=== PATIENT | male | born 1955 | race African-American/Black ===

== ENCOUNTER 2018-08-27 14:55 | Emergency (ER) | payer MEDICARE, MEDICAID ==
[~2018-08-27] VITALS: Ht 172.7 cm; Wt 68.0 kg
[2018-08-27] MEDS ORDERED: Sodium Chloride 500ML 500 ML IV ONE (15:41)
[2018-08-27] MEDS ORDERED: Fish oil ORAL (16:03)
[2018-08-27] MEDS ORDERED: ABILIFY2 MG ORAL (16:03)
[2018-08-27] MEDS ORDERED: FOLIC ACID1 MG ORAL (16:03)
[2018-08-27] MEDS ORDERED: LOSARTAN POTASS50 MG ORAL (16:03)
[2018-08-27] MEDS ORDERED: LIPITOR20 MG ORAL (16:03)
[2018-08-27] MEDS ORDERED: PROTONIX40 MG ORAL (16:03)
[2018-08-27] MEDS ORDERED: KEYTRUDA100 MG/4 M IV (16:08)
[2018-08-27 16:09] VITALS: BP 134/66
[2018-08-27 16:23] LABS: INR 1.1 (0.9-1.1)
[2018-08-27 16:27] LABS: ANION GAP 10 mmol/L (5-15); BLOOD UREA NITROGEN 16 mg/dL (7-18); CALCIUM 9.2 MG/DL (8.5-10.1); CARBON DIOXIDE 26 MMOL/L (21-32); CHLORIDE 93 MMOL/L (98-107); CREATININE 0.8 MG/DL (0.55-1.30); POTASSIUM 5.1 MMOL/L (3.5-5.1); SODIUM 129 MMOL/L (136-145)
[2018-08-27 16:32] LABS: ALANINE AMINOTRANSFERASE 25 U/L (12-78); ALBUMIN 3.3 G/DL (3.4-5.0); ALBUMIN/GLOBULIN RATIO 0.7 (1.0-2.7); ALKALINE PHOSPHATASE 116 U/L (46-116); ASPARTATE AMINO TRANSFERASE 33 U/L (15-37)
[2018-08-27 16:37] LABS: HEMATOCRIT 26.1 % (42.0-52.0); MEAN CORPUSCULAR VOLUME 90 FL (80-99); PLATELET COUNT 124 K/UL (150-450); RED CELL DISTRIBUTION WIDTH 17.9 % (11.6-14.8); WHITE BLOOD COUNT 6.1 K/UL (4.8-10.8)
[2018-08-27] MEDS ORDERED: OMEGA 3 1,0001 EACH PO (17:30)
[2018-08-27] MEDS ORDERED: HYDROMORPHONE HC4 M1 PO (17:30)
[2018-08-27] MEDS ORDERED: LOSARTAN POTAS100 MG ORAL (17:30)
[2018-08-27] MEDS ORDERED: ABILIFY5 MG ORAL (17:30)
[2018-08-27 17:33] VITALS: BP 119/69
[2018-08-27] MEDS ORDERED: VITAMIN D250000 UNI1 ORAL (17:37)
--- NOTE | 2018-08-27 17:56 | Emergency Room Report ---
History of Present Illness General Chief Complaint: Abnormal Labs Source: Patient Present Illness HPI 8-year-old male presents ED for evaluation. Was sent here for evaluation of low hemoglobin. Labs drawn today at PMD office and stated that his hemoglobin was 6.6. History of lung CA with metastasis. Is currently receiving chemotherapy. States he feels a little weak. Denies any blood in stool. Also complaining of left leg weakness 3 days. States he is unable to lift the leg properly. Notes some tingling sensation in the leg with some pain. Eyes any incontinence. Denies any slurred speech or facial droop. Denies any arm weakness. No other aggravating relieving factors. Denies any other associated symptoms Allergies: Coded Allergies: No Known Allergies (Unverified , 08/27/18) Patient History Past Medical History: HTN, GERD, other - lung CA Past Surgical History: none Pertinent Family History: none Social History: Denies: smoking, alcohol use, drug use Immunizations: UTD Reviewed Nursing Documentation: PMH: Agreed Nursing Documentation-PMH Hx Hypertension: Yes Hx Cancer: Yes - Lung CA, with bone mets. Hx Gastrointestinal Problems: Yes - GERD Review of Systems All Other Systems: negative except mentioned in HPI Physical Exam Vital Signs Date Time Temp Pulse Resp B/P (MAP) Pulse Ox O2 Delivery O2 Flow Rate FiO2 08/27/18 15:15 98.8 71 18 132/73 99 Room Air Sp02 EP Interpretation: reviewed, normal General Appearance: no apparent distress, alert, GCS 15, non-toxic Head: normocephalic, atraumatic Eyes: bilateral eye normal inspection, bilateral eye PERRL ENT: hearing grossly normal, normal pharynx, no angioedema, normal voice Neck: full range of motion, supple/symm/no masses Respiratory: chest non-tender, lungs clear, normal breath sounds, speaking full sentences Cardiovascular #1: regular rate, rhythm, no edema Cardiovascular #2: 2+ carotid (R), 2+ carotid (L), 2+ radial (R), 2+ radial (L) , 2+ dorsalis pedis (R), 2+ dorsalis pedis (L) Gastrointestinal: normal bowel sounds, non tender, soft, non-distended, no guarding, no rebound Rectal: deferred Genitourinary: normal inspection, no CVA tenderness Musculoskeletal: gait/station normal, normal range of motion Neurologic: alert, oriented x3, responsive, pin worker III-XII nml as tested, speech normal, other - unable to lift LLE Psychiatric: judgement/insight normal, memory normal, mood/affect normal, no suicidal/homicidal ideation Reflexes: 3+ bicep (R), 3+ bicep (L), 3+ tricep (R), 3+ tricep (L), 3+ knee (R) , 3+ knee (L) Skin: normal color, no rash, warm/dry, well hydrated Lymphatic: no adenopathy Medical Decision Making Diagnostic Impression: Primary Impression: Anemia Qualified Codes: D64.9 - Anemia, unspecified Additional Impressions: Left leg weakness Closed fracture of lumbar vertebral body Osseous metastasis Sciatica Qualified Codes: M54.32 - Sciatica, left side ER Course Hospital Course 62 yo M presents to ED for evaluation of anemia. h/o lung cancer on chemotherapy. c/o lower leg weakness Differential diagnosis includes- anemia, dehydration, sciatica Clinical course Patient placed on stretcher. After initial history and physical I ordered labs , CT head and CT L spine Labs - no leukocytosis, hb/hct stable, electrolytes ok CT head - no acute process CT L spine - pathologic fx L1 likely osseus metastasis, spinal stenosis with disk bulging noted Discussed findings with patient. No bowel or bladder incontinence. I offered option for admission but patient declined. States he wants to follow-up as outpatient. I discussed findings with PMD Dr. Vasquez I feel this is a highly complex case requiring extensive working including EKG/ Rhythm strip, Xray/CT/US, Blood/urine lab work, repeat exams while in ED, and administration of strong opiates/narcotics for pain control, admission to hospital or close patient follow up. Diagnosis - anemia, L leg weakness, closed fracture of lumbar vertebral body, osseus metastasis, sciatica Stable and discharged to home. Followup with PMD. Return to ED if symptoms recur or worsen Labs Test 08/27/18 15:40 White Blood Count 6.1 K/UL (4.8-10.8) Red Blood Count 2.90 M/UL (4.70-6.10) Hemoglobin 9.0 G/DL (14.2-18.0) Hematocrit 26.1 % (42.0-52.0) Mean Corpuscular Volume 90 FL (80-99) Mean Corpuscular Hemoglobin 31.0 PG (27.0-31.0) Mean Corpuscular Hemoglobin Concent 34.4 G/DL (32.0-36.0) Red Cell Distribution Width 17.9 % (11.6-14.8) Platelet Count 124 K/UL (150-450) Mean Platelet Volume 6.2 FL (6.5-10.1) Neutrophils (%) (Auto) % (45.0-75.0) Lymphocytes (%) (Auto) % (20.0-45.0) Monocytes (%) (Auto) % (1.0-10.0) Eosinophils (%) (Auto) % (0.0-3.0) Basophils (%) (Auto) % (0.0-2.0) Differential Total Cells Counted 100 Neutrophils % (Manual) 95 % (45-75) Lymphocytes % (Manual) 3 % (20-45) Monocytes % (Manual) 2 % (1-10) Eosinophils % (Manual) 0 % (0-3) Basophils % (Manual) 0 % (0-2) Band Neutrophils 0 % (0-8) Platelet Estimate Decreased Platelet Morphology Normal Hypochromasia 1+ Anisocytosis 1+ Prothrombin Time 11.6 SEC (9.30-11.50) Prothromb Time International Ratio 1.1 (0.9-1.1) Activated Partial Thromboplast Time 28 SEC (23-33) Sodium Level 129 MMOL/L (136-145) Potassium Level 5.1 MMOL/L (3.5-5.1) Chloride Level 93 MMOL/L (98-107) Carbon Dioxide Level 26 MMOL/L (21-32) Anion Gap 10 mmol/L (5-15) Blood Urea Nitrogen 16 mg/dL (7-18) Creatinine 0.8 MG/DL (0.55-1.30) Estimat Glomerular Filtration Rate > 60 mL/min (>60) Glucose Level 93 MG/DL (74-106) Calcium Level 9.2 MG/DL (8.5-10.1) Total Bilirubin 1.0 MG/DL (0.2-1.0) Aspartate Amino Transf (AST/SGOT) 33 U/L (15-37) Alanine Aminotransferase (ALT/SGPT) 25 U/L (12-78) Alkaline Phosphatase 116 U/L (46-116) Total Protein 7.8 G/DL (6.4-8.2) Albumin 3.3 G/DL (3.4-5.0) Globulin 4.5 g/dL Albumin/Globulin Ratio 0.7 (1.0-2.7) CT/MRI/US Diagnostic Results CT/MRI/US Diagnostic Results #1: Imaging Test Ordered: CT head Impression no acute process CT/MRI/US Diagnostic Results #2: Imaging Test Ordered: CT L spine Impression Sclerotic changes in the right aspect of the L1 vertebral body with probable pathologic fractures which are likely acute or subacute. Findings could represent osseous metastasis. Further evaluation could be performed with MRI. No malalignment of the lumbar spine. Nonspecific 9 mm nodule in the right adrenal gland. Atherosclerotic changes of the vasculature. No aneurysm identified. Disc bulge with ligamentum flavum hypertrophy and mild facet degenerative change causing moderate spinal canal stenosis at L3-4 and moderate spinal canal stenosis at L4-5. Disc bulge with ligamentum flavum hypertrophy at L5-S1 without significant spinal canal stenosis. Mild bilateral neural foraminal stenoses at L3-4, L4-5, and L5-S1. Last Vital Signs Date Time Temp Pulse Resp B/P (MAP) Pulse Ox O2 Delivery O2 Flow Rate FiO2 08/27/18 17:33 98.8 80 20 119/69 96 Room Air Status: improved Disposition: HOME, SELF-CARE Condition: Stable Referrals: NON PHYSICIAN (PCP) Saul Park MD Aug 27, 2018 17:56
[2018-08-27 19:52] VITALS: BP 113/67
[2018-08-27 19:58] VITALS: BP 113/67
--- NOTE | 2018-08-28 08:47 | Diagnostic Imaging Report ---
Indications: Weakness, back pain, left leg weakness Technique: Spiral acquisitions obtained through the lumbar spine. Multiplanar reconstructions were generated. No IV contrast utilized. Total dose length product 361 mGycm. CTDIvol(s) 12.75 mGy. Dose reduction achieved using automated exposure control Comparison: none Findings: There is a compression fracture deformity of the L1 vertebral body. This predominantly involves the right lateral aspect; the center and left side of the vertebral body are largely intact. There is sclerosis of the involved segment. Fracture lines are seen through the involved segment. There is no retropulsion. The remaining vertebral body heights are preserved. The remaining vertebral bodies are normal in attenuation. No other evidence of fracture demonstrated. At L3-4, there is circumferential annular bulge. This, in combination with ligament flavum hypertrophy, results in borderline narrowing of the spinal canal at this level and perhaps mild compromise of the neural foramina. At L4-5, there is circumferential annular bulge. This, in combination with ligamentum flavum hypertrophy, results in borderline narrowing of the spinal canal and possible mild compromise of the bilateral neural foramina. There is minimal facet arthrosis at this level bilaterally. At L5-S1, there is circumferential annular bulge as well as broad-based central posterior disc protrusion. This results in minimal if any compromise of the spinal canal. The neural foramina are preserved. At the remaining disc levels, no significant disc bulge or protrusion, spinal stenosis, or neural foraminal stenosis. The surrounding soft tissues are unremarkable except for a questionable 9 mm right adrenal nodule. Impression: Evidence of pathologic compression fracture involving the right side of the L1 vertebral body. Sclerosis of the vertebral body raises possibility of chronicity, but is more likely pre-existing sclerosis related to tumor or other process. Presence of fracture lines is more suggestive of this being acute, however; favor the latter. Consider MRI for better characterization if clinically indicated Multilevel mild degenerative changes as detailed on a level by level basis above. Equivocal 9 mm right adrenal nodule. This agrees with the preliminary interpretation provided overnight by [facility]. The CT scanner at [facility] is accredited by the [employer] and the scans are performed using protocols designed to limit radiation exposure to as low as reasonably achievable to attain images of sufficient resolution adequate for diagnostic evaluation.
--- NOTE | 2018-08-28 11:35 | Diagnostic Imaging Report ---
Indications: Left leg weakness x3 days with numbness Technique: Spiral acquisitions obtained through the brain. Angled axial and coronal 5 x 5 mm slices were reconstructed. Total dose length product 1339.8 mGycm. CTDI vol(s) 70.38 mGy. Dose reduction achieved using automated exposure control Comparison: None. Findings: There is mild age-related prominence of the ventricles and extra axial CSF spaces. No acute intracranial hemorrhage or edema. No mass effect nor midline shift. Wong-white differentiation is normal. There is equivocal minimal scalp soft tissue swelling near the vertex. The visualized orbits and sinuses are unremarkable. The calvarium is intact. The mastoids are clear. Impression: Minimal age-related volume loss Negative for acute intracranial bleed or mass effect Equivocal minimal scalp soft tissue swelling near the vertex. Correlate with any prior history of trauma This agrees with the preliminary interpretation provided overnight by [facility]. The CT scanner at [facility] is accredited by the [employer] and the scans are performed using protocols designed to limit radiation exposure to as low as reasonably achievable to attain images of sufficient resolution adequate for diagnostic evaluation.
== END 2018-08-27 19:58 | disposition home or self-care (01) ==
LOC: EMR 16:03
DX: D64.9 Anemia, unspecified (principal); M54.32 Sciatica, left side; S32.009A Unspecified fracture of unspecified lumbar vertebra, initial encounter for closed fracture; C34.90 Malignant neoplasm of unspecified part of unspecified bronchus or lung; C79.51 Secondary malignant neoplasm of bone; X58.XXXA Exposure to other specified factors, initial encounter; I10 Essential (primary) hypertension; Y93.9 Activity, unspecified; Y92.9 Unspecified place or not applicable; Z79.899 Other long term (current) drug therapy
CPT/HCPCS: 36415; 70450; 72131; 80053; 85007; 85025; 85610; 85730; 86850; 86900; 86901; 99284